=== PATIENT | female | born 1955 | race Caucasian/White ===

== ENCOUNTER 2018-03-10 12:01 | Emergency (ER) | payer OTHER ==
[2018-03-10 12:38] VITALS: RESP 18
[2018-03-10] MEDS ORDERED: SODIUM CHLORIDE 0.9% 1000ML 1,000 ML IV SCH (12:45)
[2018-03-10 12:48] LABS: BASOPHILS % (AUTO) 2 % (0-3); EOSINOPHILS % (AUTO) 0 % (0-9); HEMATOCRIT 43 % (35-47); HEMOGLOBIN 14.5 gm/dl (12.0-15.5); LYMPHOCYTES % (AUTO) 10.4 % (10-50); MEAN CORPUSCULAR HEMOGLOBIN 29.2 pg (27.0-32.0); MEAN CORPUSCULAR HGB CONC 33.9 gm/dl (32.0-36.0); MEAN CORPUSCULAR VOLUME 86 fL (81-99); MONOCYTES % (AUTO) 3.1 % (0-12); NEUTROPHILS % (AUTO) 84.3 % (37-80)
[2018-03-10 13:05] LABS: ALBUMIN 3.7 gm/dl (3.4-5.0); ALKALINE PHOSPHATASE 40 IU/L (46-116); ALT 20 IU/L (14-63); AST 17 IU/L (15-37); BILIRUBIN,TOTAL 0.8 mg/dl (0.2-1.0); BLOOD UREA NITROGEN 21 mg/dl (7-18); CARBON DIOXIDE 27.5 mEq/L (21-32); CHLORIDE 101 mMol/L (98-107); CREATININE 1.16 mg/dl (0.60-1.00); GLOM FILT RATE 47 mL/min (>60); GLUCOSE 103 mg/dl (74-106); POTASSIUM 4.8 mMol/L (3.5-5.1); SODIUM 138 mMol/L (136-145); TOTAL PROTEIN 7.7 gm/dl (6.4-8.2); TROP I < 0.017 ng/ml (0.000-0.056)
[2018-03-10 13:55] VITALS: BP 161/70; PULSE 62; O2SAT 100
[2018-03-10] MEDS ORDERED: SODIUM CHLORIDE 0.9% 1000ML 1,000 ML IV ONE (14:24)
[2018-03-10 14:46] LABS: APPEARANCE,URINE Clear; BILIRUBIN,URINE NEGATIVE (NEGATIVE); COLOR,URINE Yellow; GLUCOSE, URINE (UA) NEGATIVE (NEGATIVE); KETONES,URINE NEGATIVE (NEGATIVE); LEUKOCYTE ESTERASE ,URINE 1+ (NEGATIVE); NITRATE,URINE NEGATIVE (NEGATIVE); OCCULT BLOOD,URINE NEGATIVE (NEG-TRACE); PH,URINE 6.5; UROBILINOGEN,URINE 0.2 (0.2-1.0 EU)
[2018-03-10 14:59] LABS: RBC,URINE NEGATIVE (0-3AV/HPF)
[2018-03-10 15:00] LABS: BACTERIA 1+ (< 1+); CRYSTALS NEGATIVE (0-3 AVE/HPF)
[2018-03-10 15:31] VITALS: TEMP 96.8
== END 2018-03-10 16:59 | disposition home or self-care (01) | DRG 312 ==
LOC: ED 12:01
DX: R55 Syncope and collapse (principal); H54.7 Unspecified visual loss
CPT/HCPCS: 36415; 70496; 80053; 81001; 84484; 85025; 87088; 93005; 93225; 96365; 99284